=== PATIENT | male | born 1955 | race African-American/Black ===

== ENCOUNTER 2018-11-15 11:05 | Observation (INO) | payer OTHER ==
--- NOTE | 2018-11-15 11:29 | ED ---
HPI Chest Pain - HPI Summary HPI Summary: Pt is a 63 y/o M presenting to the ED with a chief complaint of chest pain first onset about 2 months ago that is progressively getting worse. The pain usually comes on in the morning, starts in his jaw, and radiates down to his mid -sternum, where it feels more like pressure, and L anterior chest, where the pain is worse. He states it does not change with position, and usually resolves spontaneously. He reports associated bad taste in his mouth as well as nausea. He last had a cardiac stress test 5 years ago. - History of Current Complaint Chief Complaint: EDChestPainROMI Time Seen by Provider: 11/15/18 11:08 Hx Obtained From: Patient Onset/Duration: Started Weeks Ago, Still Present Timing: Intermittent, Lasting Minutes Initial Severity: Moderate Current Severity: Mild Pain Intensity: 4 Pain Scale Used: 0-10 Numeric Chest Pain Location: Mid Sternal, Left Anterior Chest Pain Radiates: Yes Chest Pain Radiates To:: Jaw Character: Pressure/Squeezing Aggravating Factor(s): Nothing Alleviating Factor(s): Spontaneous Resolution Associated Signs and Symptoms: Positive: Chest Pain, Nausea, Other: - bad taste in mouth - Allergy/Home Medications Allergies/Adverse Reactions: Allergies Allergy/AdvReac Type Severity Reaction Status Date / Time No Known Allergies Allergy Verified 11/15/18 12:25 Home Medications: Home Medications Acetaminophen TAB* [Tylenol TAB*] 325 mg PO QID 11/15/18 [History Confirmed 01/27] Aspirin 325 mg PO QPM 11/15/18 [History Confirmed 11/15/18] Atorvastatin* [Lipitor*] 80 mg PO DAILY 11/15/18 [History Confirmed 11/15/18] Calcium Carbonate CHEW TAB* [Tums*] 500 mg PO Q6H PRN 11/15/18 [History Confirmed 11/15/18] Cholecalciferol TAB* [Vitamin D TAB*] 5,000 unit PO DAILY 11/15/18 [History Confirmed 11/15/18] Clotrimazole 1% CREAM* [Clotrimazole 1%*] 1 applic TOPICAL BID 11/15/18 [ History Confirmed 11/15/18] Docusate Sodium [Colace] 200 mg PO DAILY 11/15/18 [History Confirmed 11/15/18] Fluocinonide 0.05% CM(NF) [Lidex 0.05% CREAM(NF)] 1 applic TOPICAL BID 11/15/18 [History Confirmed 11/15/18] Hydrochlorothiazide TAB* [Hydrodiuril TAB*] 25 mg PO DAILY 11/15/18 [History Confirmed 11/15/18] Hydrocortisone SUPP* [Anusol Hc Supp*] 1 supp CO BEDTIME PRN 11/15/18 [History Confirmed 11/15/18] Latanoprost 0.005%* [Xalatan 0.005%*] 1 drop BOTH EYES BEDTIME 11/15/18 [ History Confirmed 11/15/18] Lisinopril 30 mg PO DAILY 11/15/18 [History Confirmed 11/15/18] Loratadine [Claritin] 10 mg PO DAILY 11/15/18 [History Confirmed 11/15/18] Minerin Cream* [Eucerin Cream*] 1 applic TOPICAL DAILY 11/15/18 [History Confirmed 11/15/18] Pyridoxine TAB* [Vitamin B6 TAB*] 50 mg PO DAILY 11/15/18 [History Confirmed 01/27] Sennosides [Senna] 8.6 mg PO DAILY 11/15/18 [History Confirmed 11/15/18] Timolol 0.5% OPTH.MURALI* [Timoptic 0.5% Opth*] 1 drop BOTH EYES QAM 11/15/18 [ History Confirmed 11/15/18] PMH/Surg Hx/FS Hx/Imm Hx Previously Healthy: Yes Endocrine/Hematology History: Reports: Hx Diabetes Cardiovascular History: Reports: Hx Hypercholesterolemia, Hx Hypertension Denies: Hx Pacemaker/ICD Respiratory History: Reports: Hx Asthma History: Denies: Hx Renal Disease Sensory History: Reports: Hx Contacts or Glasses, Hx Glaucoma Denies: Hx Hearing Aid Opthamlomology History: Reports: Hx Contacts or Glasses, Hx Glaucoma Psychiatric History: Denies: Hx Panic Disorder Infectious Disease History: No Infectious Disease History: Denies: Traveled Outside the [place] in Last 30 Days - Family History Known Family History: Negative: Respiratory Disease - Social History Alcohol Use: None Hx Substance Use: No Substance Use Type: Reports: None Substance Use Comment - Amount & Last Used: hx of drug abuse Hx Tobacco Use: Yes Smoking Status (MU): Light Every Day Tobacco Smoker Type: Cigarettes Review of Systems Positive: Other - bad taste in mouth Positive: Chest Pain Positive: Nausea All Other Systems Reviewed And Are Negative: Yes Physical Exam - Summary Physical Exam Summary: VITAL SIGNS: Reviewed. GENERAL: Patient is a well-developed and nourished male who is lying comfortable in the stretcher. Patient is not in any acute respiratory distress. HEAD AND FACE: No signs of trauma. No ecchymosis, hematomas or skull depressions. No sinus tenderness. EYES: PERRLA, EOMI x 2, No injected conjunctiva, no nystagmus. EARS: Hearing grossly intact. Ear canals and tympanic membranes are within normal limits. MOUTH: Oropharynx within normal limits. NECK: Supple, trachea is midline, no adenopathy, no JVD, no carotid bruit, no c- spine tenderness, neck with full ROM. CHEST: Symmetric, no tenderness at palpation LUNGS: Clear to auscultation bilaterally. No wheezing or crackles. CVS: Regular rate and rhythm, S1 and S2 present, no murmurs or gallops appreciated. ABDOMEN: Soft, non-tender. No signs of distention. No rebound no guarding, and no masses palpated. Bowel sounds are normal. EXTREMITIES: FROM in all major joints, no edema, no cyanosis or clubbing. NEURO: Alert and oriented x 3. No acute neurological deficits. Speech is normal and follows commands. SKIN: Dry and warm Triage Information Reviewed: Yes Vital Signs On Initial Exam: Initial Vitals Temp Pulse Resp BP Pulse Ox 97.4 F 56 23 140/95 100 11/15/18 11:11 11/15/18 11:11 11/15/18 11:11 11/15/18 11:11 11/15/18 11:11 Vital Signs Reviewed: Yes Diagnostics - Vital Signs Vital Signs Temp Pulse Resp BP Pulse Ox 11/15/18 11:14 52 14 100 11/15/18 11:11 97.4 F 56 23 140/95 100 - Laboratory Result Diagrams: 11/15/18 11:41 11/15/18 11:41 Lab Statement: Any lab studies that have been ordered have been reviewed, and results considered in the medical decision making process. - Radiology CXR Radiology Interpretation Completed By: Radiologist Summary of Radiographic Findings: No active cardiopulmonary disease. ED physician has reviewed this report. - EKG 1157 Cardiac Rate: Bradycardia - 53bpm EKG Rhythm: Sinus Bradycardia ST Segment: Normal Ectopy: None EKG Comparison: No Significant Change Summary of EKG Findings: EKG shows sinus bradycardia at 53bpm with no STEMI, and no acute changes from 10/17/13. Chest Pain Course/Dx - Course Assessment/Plan: This patient is a 63-year-old male who presents via EMS from the [facility] department of [place] with a chief complaint of having chest pain with radiation to his jaw. This symptoms have been present for approximately one month. It started only on exertion, now it comes on regardless of position. This morning he developed the symptoms again, he was given aspirin and nitroglycerin and the symptoms improved. Therefore, the patient was sent to the emergency department for further workup and management. He describes the pain as a pressure-like pain, 4-5 out of 10. Past medical history significant for asthma/COPD, hypertension, GERD, CVA, glaucoma. In the ED course the patient was placed in a radiographer cardiac catheterization, we ordered an EKG, chest x-ray and blood work. The patient is a stable and pain-free at this time. EKG shows a sinus bradycardia [address] elevations. The patient has a T -wave inversion in V3 which is similar to his EKG done on 10/17/13. Blood tests without any significant abnormality, troponin 0.00. Urinalysis is negative. The heart to score is equal to 4 therefore some moderate risk for coronary disease. Therefore I discuss my physical exam and findings with Dr. Rajput from asthma services who accepted the patient for admission. The patient is hemodynamically stable alert and oriented 3. - Diagnoses Provider Diagnoses: Chest pain Discharge - Sign-Out/Discharge Documenting (check all that apply): Patient Departure - Discharge Plan Condition: Stable Disposition: ADMITTED TO [facility] - Billing Disposition and Condition Condition: STABLE Disposition: Admitted to [facility] - Attestation Statements Document Initiated by Scribe: Yes Documenting Scribe: Aletha Monroy Provider For Whom Roni is Documenting (Include Credential): Erik Larson MD. Scribe Attestation: Aletha Clark, scribed for Erik Larson MD. on 11/15/18 at 2053. Scribe Documentation Reviewed: Yes Provider Attestation: The documentation as recorded by the Aletha mendoza accurately reflects the service I personally performed and the decisions made by me, Erik Larson MD. Status of Roni Document: Viewed Consult Consult: [id number] - I spoke with Dr. Rajput who will be accepting the pt for admission to [facility] with a dx of chest pain.
[2018-11-15 11:49] LABS: Hematocrit 38 % (42-52); Hemoglobin 12.6 g/dL (14.0-18.0); Mean Corpuscular HGB Conc 33 g/dL (31-36); Mean Corpuscular Hemoglobin 28 pg (27-31); Mean Corpuscular Volume 85 fL (80-94); Mean Platelet Volume 9.6 fL (7.4-10.4); Platelet Count 169 10^3/uL (150-450); Red Blood Count 4.45 10^6 /uL (4.18-5.48); Red Cell Distribution Width 14 % (10.5-15); White Blood Count 4.5 10^3/uL (3.5-10.8)
[2018-11-15 12:08] LABS: Albumin 4.1 g/dL (3.2-5.2); Albumin/Globulin Ratio 1.5 (1-3); BUN/Creatinine Ratio 10.4 (8-20); Calcium 9.6 mg/dL (8.6-10.3); EGFR African American 85.4 (>60); EGFR Non-African American 70.6 (>60); Globulin 2.7 g/dL (2-4); Magnesium 1.9 mg/dL (1.9-2.7); Potassium 3.9 mmol/L (3.5-5.0); Total Bilirubin 0.3 mg/dL (0.2-1.0); Total Protein 6.8 g/dL (6.4-8.9)
[2018-11-15 12:12] LABS: CKMB ng/mL 1.3 ng/mL (0.6-6.3)
[2018-11-15 12:22] LABS: TSH (Thyroid Stimulating Horm) 2.19 mcIU/mL (0.34-5.60)
[2018-11-15 12:42] LABS: Urine Appearance Clear; Urine Bilirubin Negative (Negative); Urine Blood Negative (Negative); Urine Color Yellow; Urine Glucose Negative (Negative); Urine Ketones Negative (Negative); Urine Nitrite Negative (Negative); Urine Protein Negative (Negative); Urine Specific Gravity 1.013 (1.010-1.030); Urine Urobilinogen Negative (Negative)
[2018-11-15 12:57] LABS: ABS Eosinophils 0.1 10^3/ul (0-0.6); ABS Lymphocytes 1.6 10^3/ul (1.0-4.8); ABS Monocytes 0.3 10^3/ul (0-0.8); ABS Neutrophils 2.5 10^3/ul (1.5-7.7); Lymphocyte % 35.2 %; Nucleated Red Blood Cells % 0.2
[2018-11-15 13:06] LABS: Hepatitis C Antibody Nonreactive (Nonreactive)
[2018-11-15] MEDS ORDERED: Acetaminophen TAB* 325 MG PO PRN (15:53)
[2018-11-15] MEDS ORDERED: Enoxaparin(*) 40 MG/0.4 ML SYR SUBCUT SCH (16:00)
[2018-11-15] MEDS ORDERED: Dextrose 50% Syringe 50 ML* 25 GM/50 ML SYRINGE IV PUSH PRN (16:53)
[2018-11-15] MEDS ORDERED: Aspirin TAB* 325 MG PO SCH (18:00)
--- NOTE | 2018-11-15 19:16 | HP ---
HISTORY AND PHYSICAL: DATE OF ADMISSION: 11/15/18 PRIMARY CARE PROVIDER: [facility] ATTENDING PHYSICIAN WHILE IN THE HOSPITAL: Dr. Minnie Rajput * (dictated by Emmy Gaines, ZOILA). CHIEF COMPLAINT: Chest pain. HISTORY OF PRESENT ILLNESS: Mr. Curry is a 63-year-old male with past medical history significant for hypertension, diabetes, glaucoma, BPH, GERD, dyslipidemia, CVA in 2013 who presented to the emergency room with complaints of left-sided chest pain. The patient reports that when he gets up in the morning he develops a left- sided chest pain. He reports that it is worse with exertion. He reports that before the pain starts he feels a tightness in his face and gets a bad taste in his mouth. He reports that the episodes of chest pain last approximately 5 minutes. He reports that at times the pain is associated with exertion. He reports that if he is walking and he stops the pain resolves with rest. The patient reports that he has had left-sided chest pressure all day rated at a 4, nothing making it worse, nothing making it better. Report that the pain is not reproducible with palpation. The patient at this point reports that he believes his chest pain is associated with straining with blowing his nose this morning as he reports this is when he developed midsternal chest tightness and left-sided chest pain. The patient reports that he has had these episodes for the past 2 months. He reports that he gets these episodes 3 to 4 times a week and they resolve with rest or spontaneously resolve on their own. He also reports that with the episodes of chest pain, his right arm feels heavy he does report that he feels this is related to anxiety, as in the past he had associated right-sided weakness with a CVA in 2013. The patient denies any nausea or vomiting associated with the chest pain. The patient does report that occasionally he gets short of breath with exertion with the chest pain. Due to his chest pain, history of hypertension, diabetes, we were asked to see and evaluate him for admission. PAST MEDICAL HISTORY: 1. Hypertension. 2. Diabetes. 3. Glaucoma. 4. BPH. 5. GERD. 6. Dyslipidemia. 7. CVA 2013. PAST SURGICAL HISTORY: None. HOME MEDICATIONS: 1. Lipitor 80 mg p.o. q.p.m. 2. Aspirin 325 mg p.o. q.p.m. 3. Senna 8.6 mg p.o. 2 tablets daily. 4. Timoptic 0.5% one drop O.U. q.a.m. 5. Vitamin B6 at 50 mg 2 daily. 6. Glucophage 500 mg p.o. b.i.d. 7. Prilosec 20 mg p.o. daily. 8. Flomax 0.4 two tablets daily. 9. Colace 200 mg p.o. daily. 10. Claritin 10 mg p.o. daily. 11. Anusol suppository as needed. 12. Tums to chew as needed. 13. as needed b.i.d. 0.05%. 14. Clotrimazole cream 1% b.i.d. 15. Eucerin cream daily. 16. Tylenol 325 mg 2 tablets p.o. q.i.d. p.r.n. 17. Vitamin D 5000 units daily. 18. Tucks p.r.n. 19. Xalatan 0.005% 1 drop O.U. at h.s. 20. Lisinopril 30 mg q.p.m. 21. Hydrochlorothiazide daily. FAMILY HISTORY: Mother with an PA, at the age of 78 from an PA. Grandmother and brother with diabetes. Father of colon cancer. SOCIAL HISTORY: The patient reports that he smokes a quarter pack per day since 2009. No alcohol or illicit drug use. [facility]. Surrogate decision maker in the event he is unable to make his own decisions as his sister and daughter. He is a full code. REVIEW OF SYSTEMS: The patient denies any fever or unintended weight loss. He does report chest pain on and off for the past 2 months. Denies any edema. Denies any cough or hemoptysis. He does report occasional shortness of breath with exertion and with chest pain. Denies any nausea, vomiting, diarrhea, abdominal pain, gross hematuria, or dysuria. Denies any focal weakness or sensory loss. Denies any visual complaints, dysphagia, arthralgias, myalgias, rashes, lesions, or open sores. Denies any psychosis or anxiety. PHYSICAL EXAMINATION GENERAL: At this time, Mr. Curry is alert and oriented, sitting on the stretcher in the emergency room. He does not appear to be in any acute distress. VITAL SIGNS: Blood pressure 123/72, pulse is 65, respirations are 12, temperature was 97.4. HEENT: Head is atraumatic, normocephalic. Eyes: EOMs are intact. Sclerae anicteric, not pale. Oral mucosa appeared to be moist. NECK: Supple. LUNGS: Clear to auscultation bilaterally. No wheezes, rales or rhonchi. HEART: S1 and S2. Regular rate and rhythm. No murmurs, rubs or gallops. ABDOMEN: Soft and nontender. Bowel sounds are present x4. EXTREMITIES: He is able to move all 4 extremities with 5/5 strength. Pedal pulses are +2 bilaterally. Radial pulses are +2 bilaterally. Skin is intact. NEUROLOGIC: He is awake, alert, and oriented x3. Speech is clear. Thought processes intact. Cranial nerves II through XII are grossly intact. Push-pull is intact. Hand loss control representative is equal bilaterally. There is no pronator drift. There is no drifts, smile is equal. Tongue is midline. There is no facial asymmetry. Neurologic is grossly intact. PSYCH: The patient is alert, oriented x3. He is calm and cooperative DIAGNOSTIC STUDIES/LAB DATA: WBCs were 4.5, RBC is 4.45, hemoglobin 12.6, hematocrit 38, platelet count 169, aPTT was 29.7. Sodium 136, potassium 3.9, chloride 105, carbon dioxide 25, anion gap is 6, BUN is 11, creatinine 1.06, glucose is 116, lactic acid 1.1, calcium 9.6, magnesium 1.9. ASTs were 18, ALTs were 15, alkaline phosphatase is 56, CK was 204. Troponin 0.00 and repeat was 0.01, BNP was 12, TSH was 2.19. Urine is within normal limits. Hepatitis C antibody is nonreactive. AB index is 0.1, HIV-1 and 2 antibodies were nonreactive. Chest x-ray: Radiologist's impression: No active cardiopulmonary disease. He had an electrocardiogram, which showed sinus bradycardia at a rate of 53. He has an inverted T-wave in lead 3, which is consistent when compared with EKG from 10/17/13. ASSESSMENT AND PLAN: Mr. Curry is 63-year-old male who presented to the emergency room with complaint of chest pain. We were asked to see and evaluate him due to his chest pain. He will be admitted under observation for. 1. Chest pain. We will rule out acute coronary syndrome. The patient has had 2 negative troponins, his third troponin is currently pending. I will get a nuclear exercise stress test tomorrow. He will have a lipid profile in the morning. He will monitored on telemetry. I will also add on a hemoglobin A1c. We will continue his atorvastatin 80 mg p.o. daily and aspirin 325 mg p.o. daily. The patient does have non-reproducible midsternal to left-sided chest pain rated at a 4. 2. Hyperlipidemia. He should continue on atorvastatin 80 mg p.o. daily. 3. Gastroesophageal reflux disease. He should continue on some Prilosec 20 mg p.o. daily. 4. Benign prostatic hyperplasia. He should continue on Flomax 0.8 mg p.o. daily. 5. Hypertension. The patient should continue on hydrochlorothiazide and lisinopril as previously prescribed. 6. Glaucoma. He should continue on Xalatan and Timoptic as previously prescribed. 7. Diabetes. The patient will be placed on Accu-Checks a.c. with insulin sliding scale day. 8. Diet. The patient will have a heart healthy, no caffeine diet. 9. DVT prophylaxis. I will place him on Lovenox subcu. 10. Code status is a full code. TIME SPENT: Time spent on this admission was approximately 60 minutes, greater than half the time was spent at the bedside reviewing events leading thus far to his hospitalization, performing my physical exam and reviewing my plan of care. I have discussed this with my attending, Dr. Minnie Rajput, she is in agreement with my plan. EMMY GAINES, ZOILA [id number]/[facility] #: [id number] NICOLE
[2018-11-15] MEDS ORDERED: Tamsulosin CAP* 0.4 MG PO SCH (21:00)
[2018-11-15] MEDS ORDERED: Latanoprost 0.005%* 2.5 ml BTL BOTH EYES SCH (21:00)
[2018-11-16] MEDS: Insulin LISPRO* 1 UNITS UNIT SUBCUT SCH ×2 (07:51→12:22)
[2018-11-16] MEDS: Docusate CAP* 100 MG PO SCH ×2 (08:12→08:29)
[2018-11-16] MEDS ORDERED: Senna TAB PO SCH (09:00)
[2018-11-16] MEDS ORDERED: Cetirizine* 10 MG TAB PO SCH (09:00)
[2018-11-16] MEDS ORDERED: Cholecalciferol TAB* 1000 UNITS PO SCH (09:00)
[2018-11-16] MEDS ORDERED: Pyridoxine TAB* 50 MG PO SCH (09:00)
[2018-11-16] MEDS ORDERED: Pantoprazole TAB * 40 MG TAB PO SCH (09:00)
[2018-11-16] MEDS ORDERED: Lisinopril TAB* 10 MG PO SCH (09:00)
[2018-11-16] MEDS ORDERED: Hydrochlorothiazide TAB* 25 MG PO SCH (09:00)
[2018-11-16 11:41] VITALS: BP 98/53
[2018-11-16] MEDS ORDERED: Ezetimibe TAB* 10 MG PO SCH (17:00)
--- NOTE | 2018-11-16 20:26 | DS ---
CC: Dr. Silvio Pollack, [place]; [facility] [place]; Dr. Jean Ching* DISCHARGE SUMMARY: DATE OF ADMISSION: 11/15/18 DATE OF DISCHARGE: 11/16/18 PRIMARY CARE PROVIDER: Dr. Silvio Pollack at [place]. ATTENDING PHYSICIAN: Dr. Lacey Casey* (dictated by Linda Ahumada NP). PRIMARY DIAGNOSES: 1. Chest pain, suspect possible cardiac cause. 2. Hyperlipidemia. SECONDARY DIAGNOSES: 1. Diabetes mellitus type 2. 2. Benign prostatic hyperplasia. 3. Gastroesophageal reflux disease. 4. Hypertension. 5. History of cerebrovascular accident. STUDIES WHILE IN THE HOSPITAL: 1. EKG on 11/15/18 shows sinus bradycardia with a rate of 53, first-degree AV block, inverted T-waves in III. This was consistent with previous EKG on file from 2013. 2. Chest x-ray on 11/15/18 reads as no active cardiopulmonary disease. 3. Nuclear cardiac stress test on 11/16/18 reads as no definite fixed or reversible perfusion defects. Assessment is low-risk. HISTORY OF PRESENT ILLNESS AND HOSPITAL COURSE: Mr. Curry is a 63-year-old male with past medical history of hypertension, diabetes, hyperlipidemia and CVA in 2013, who presented to the emergency room on 11/15/18 with complaints of chest pain. Please see the history and physical by Emmy Gaines NP, for a complete summary of the events leading up to this hospitalization. In short, the patient resides at [facility] and notes recently he has had pain with exertion, which resolved with rest. He has had multiple episodes in the last 2 months and reported having these episodes approximately 3 to 4 times a week. In the emergency room, the patient had imaging as noted above. He had a troponin of 0.00. Due to his risk factors, he was admitted by the hospitalist service. The patient had an uneventful night and was monitored on telemetry. He did not have any evidence of arrhythmias or any further chest pain. The patient underwent the first portion of his stress test this morning. I did receive a call from the plug cutting machine operator afterward, who noted that the patient had approximately 2 minutes of chest pain with exercise and during the recovery period, he was noted to have some T-wave inversions in aVF, which were biphasic. He was also noted to have some minimal ST depression in II, V5 and V6. There was some concern that this represented ischemia. The patient underwent the nuclear portion of his stress test. Results are noted above, though there were no areas of hypoperfusion. I did speak with the plug cutting machine operator again, who recommended placing the patient on an antianginal and placing the patient on Zetia. The patient has already maxed out on dosing on his atorvastatin, though was noted to have an LDL still high at 96. He also recommended follow up with Cardiology in the next 2 to 3 weeks to monitor his cardiac status. The patient's second and third troponins were also flat and the patient reported feeling well after his stress test. He was anxious to have some food. On exam, he has no focal neurological deficits. His heart has a regular rate and rhythm without any murmurs, rubs, or gallops. His lung sounds are clear to auscultation without rhonchi, wheezes, or rales. Physical assessment is otherwise benign. I did speak with a nurse practitioner at [facility] to review the testing results with her and the changes going forward and she was in understanding and agreement with the plans going forward. Mr. Curry is stable for discharge today. Vital signs are as follows: Temp 97.9 , heart rate 64, respiratory rate 20, oxygen saturation 98% on room air, blood pressure 98/53. DISCHARGE MEDICATIONS: New medications: 1. Amlodipine 2.5 mg p.o. daily. 2. Zetia 10 mg p.o. daily. Continued medications: 1. Acetaminophen 325 mg p.o. 4 times daily. 2. Aspirin 325 mg p.o. daily. 3. Atorvastatin 80 mg p.o. daily. 4. Calcium carbonate chew 500 mg p.o. q.6 hours p.r.n. heartburn. 5. Cholecalciferol 5000 units p.o. daily. 6. Clotrimazole 1% one application topically b.i.d. 7. Docusate 200 mg p.o. daily. 8. Fluocinonide 0.5% one application topically b.i.d. 9. Hydrocortisone suppository 1 suppository p.r. at bedtime p.r.n. constipation. 10. Latanoprost 0.005% one drop both eyes at bedtime. 11. Lisinopril 30 mg p.o. daily. 12. Loratadine 10 mg p.o. daily. 13. Metformin 500 mg p.o. b.i.d. 14. Omeprazole 20 mg p.o. daily. 15. Pyridoxine 50 mg p.o. daily. 16. Sennosides 8.6 mg p.o. daily. 17. Tamsulosin 0.8 mg p.o. at bedtime. 18. Timolol 0.5% one drop both eyes daily. Discontinued medication: Hydrochlorothiazide. DISCHARGE PLAN: Mr. Curry will be [facility]. Activity will be as tolerated, though I have advised the patient that he should sit down and rest if he begins to experience any chest pain and he should not resume activity until the chest pain subsides. Diet should be heart-healthy. Medications are noted above. Again, the patient has been started on amlodipine for use as an antianginal. He has been taken off his hydrochlorothiazide as his blood pressures have been on the softer side and I do not think that his blood pressure would tolerate both hydrochlorothiazide and amlodipine. I have also added Zetia due to the patient's still elevated LDL despite being maxed out on therapy on atorvastatin. Both of these medications were prescribed under the recommendations by Cardiology. He can continue his other usual medications as noted above and I have not made any further changes. He will need to follow up with a provider at the skilled nursing within the next 4 to 7 days. He additionally will need to follow up with Cardiology and I have scheduled him an appointment with Dr. Jean Ching on at 1 p.m. this information has been relayed to a nurse practitioner at the skilled nursing. The patient should return to the emergency room or nearest hospital for any worsening of symptoms, shortness of breath, lightheadedness, dizziness, chest discomfort, high fever, chills, night sweats, loss of consciousness, or any other worrisome signs or symptoms. DISCHARGE CONDITION: Stable. DISCHARGE DISPOSITION: Law enforcement facility, [facility]. This is a summarized report of a complex medical history and hospital stay. For further details, please see the entire medical record. TIME SPENT: Approximately 45 minutes was spent on this discharge. LINDA MAN, BLASTING HELPER [id number]/[facility] #: [id number] NICOLE
[2018-11-16] MEDS ORDERED: Timolol 0.5% OPTH.SOL* BTL BOTH EYES SCH (21:00)
[2018-11-16] MEDS ORDERED: Tamsulosin CAP* 0.4 MG PO SCH (21:00)
[2018-11-16] MEDS ORDERED: Atorvastatin* 80 MG TAB PO SCH (21:00)
[2018-11-17] MEDS ORDERED: amLODIPine TAB* 5 MG PO SCH (09:00)
== END 2018-11-16 14:40 ==
LOC: ED 11:05 → EEVIPCON 17:28 → MEDTELE 17:28
PROVIDERS: ADMIT Internal Medicine; ATTEND Hospitalist
DX: R07.9 Chest pain, unspecified (principal); E78.5 Hyperlipidemia, unspecified; E11.9 Type 2 diabetes mellitus without complications; R11.0 Nausea; I10 Essential (primary) hypertension; E78.00 Pure hypercholesterolemia, unspecified; Z79.82 Long term (current) use of aspirin; F17.210 Nicotine dependence, cigarettes, uncomplicated; N40.0 Benign prostatic hyperplasia without lower urinary tract symptoms; K21.9 Gastro-esophageal reflux disease without esophagitis; Z86.73 Personal history of transient ischemic attack (TIA), and cerebral infarction without residual deficits; H40.9 Unspecified glaucoma
CPT/HCPCS: 36415; 71046; 78452; 80053; 80061; 81003; 82550; 82553; 83036; 83605; 83735; 83880; 84443; 84484; 85025; 85730; 86703; 86803; 93005; 93017; 96372; 99284; A9270-GY; A9502; G0378; J1650